=== PATIENT | male | born 1995 | race Caucasian/White ===

== ENCOUNTER 2019-09-23 22:59 | Emergency (ER) | payer SELFPAY ==
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
[2019-09-24] MEDS ORDERED: Acetaminophen/HYDROcodone 325-10 MG Tab PO ONE (01:20)
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
== END 2019-09-24 03:07 | disposition home or self-care (01) ==
LOC: MW.ED 22:59
DX: S02.66XA Fracture of symphysis of mandible, initial encounter for closed fracture (principal); S00.03XA Contusion of scalp, initial encounter; S00.83XA Contusion of other part of head, initial encounter; Y04.2XXA Assault by strike against or bumped into by another person, initial encounter; Y92.89 Other specified places as the place of occurrence of the external cause
CPT/HCPCS: 70450; 70486; 72125; 99284; A9270

== ENCOUNTER 2022-06-06 22:02 | Emergency (ER) | payer SELFPAY ==
[2022-06-06 23:37] LABS: ACETAMINOPHEN <2.0 ug/mL; BLOOD UREA NITROGEN,BUN 8 mg/dL (7.0-18.0); CARBON DIOXIDE,CO2 30.3 mmol/L (21.0-32.0); CHLORIDE,CL 101 mmol/L (98-107); ESTIMATED GFR 105 mL/min (>60); GLUCOSE RANDOM 92 mg/dL (74-106); POTASSIUM,K 4.2 mmol/L (3.5-5.1); SODIUM,NA 141 mmol/L (136-148)
== END 2022-06-07 01:02 | disposition home or self-care (01) ==
LOC: MW.ED 22:02
DX: F32.A Depression, unspecified (principal); F10.180 Alcohol abuse with alcohol-induced anxiety disorder; Z20.822 Contact with and (suspected) exposure to COVID-19
CPT/HCPCS: 36415; 80053; 80143; 80179; 80305-QW; 80307; 81003; 84443; 85025; 93005; 99284; U0002

== ENCOUNTER 2023-09-04 18:08 | Emergency (ER) | payer OTHER | END 2023-09-04 21:45 | disposition home or self-care (01) | LOC: MW.ED 18:08 | DX: S62.014A Nondisplaced fracture of distal pole of navicular [scaphoid] bone of right wrist, initial encounter for closed fracture (principal); Z79.899 Other long term (current) drug therapy; W19.XXXA Unspecified fall, initial encounter | CPT/HCPCS: 29125; 73030-26-RT; 73030-RT; 73090-26-LT; 73090-LT; 73130-26-LT; 73130-LT; 99283 ==